=== PATIENT | female | born 1945 | race Caucasian/White ===

== ENCOUNTER 2016-11-25 14:55 | Emergency (ER) | payer MEDICARE, MEDICAID ==
[~2016-11-25] VITALS: Ht 162.6 cm; Wt 85.0 kg
[~2016-11-25 14:55] MED LIST: ACET325T14 PO; AMLO10TA4 PO; ASCO100072 PO; ASPI-496 PO; ATOR10TA9 PO; BACL-19 PO; BISA10SU2 RC; CARV6.2512 PO; CEFT1FRO2 IV; CHOL20003 PO; CLON0.1T PO; FEXO180T72 PO; FEXO1TAB29 PO; FURO-93 PO; GABA600T2 PO; GENT3.5O3 EACHEYE; GUAI12003 PO; HYDR-3240 PO; HYDR-3341 PO; INSU100V8 SQ; LEVO750T26 PO; LINA5TAB PO; LORA-445 PO; LOSA50TA2 PO; MAGN400O4 PO; METF500T4 PO; METO5TAB57 PO; METR500T PO; MONT10TA6 PO; NA P133E2 RC; NITR100C56 PO; PANT40TA3 PO; POTA10TA11 PO; POTA20PA PO; SANCTURA PO; SENN8.6T98 PO; SERT50TA PO; SIMV20TA PO; SIMV20TA3 PO; TROS20TA PO; Z-BEC PO; ZOLP-413 PO; [UNRECOGNIZED DRUG - OTHER] PO
[2016-11-25] MEDS ORDERED: LIDOCAINE 1%, 20ML INFIL ONE (16:30)
[2016-11-25] MEDS ORDERED: LIDOCAINE 1%, 20ML SQ ONE (16:30)
[2016-11-25] MEDS ORDERED: LIDOCAINE 1%, 20ML ONE (16:42)
[2016-11-25 19:45] VITALS: BP 160/68
== END 2016-11-25 20:30 ==
LOC: ED 15:21
DX: N75.1 Abscess of Bartholin's gland (principal); E11.9 Type 2 diabetes mellitus without complications; E78.00 Pure hypercholesterolemia, unspecified; I10 Essential (primary) hypertension
CPT/HCPCS: 56420

== ENCOUNTER 2017-03-02 10:37 | Inpatient (IN) | payer MEDICARE, MEDICAID ==
[~2017-03-02] VITALS: Ht 162.6 cm; Wt 83.7 kg
[~2017-03-02 10:37] MED LIST changes: +CHOL2000 PO; -CHOL20003 PO
[2017-03-02] MEDS ORDERED: AMOXICILLIN/CLAV 500-125MG TABLET PO ONE (11:12)
[2017-03-02] MEDS: NEO/POLY/HC EAR SUSP 10ML EACH EAR SCH ×3 (11:30→18:26)
[2017-03-02 12:08] LABS: PH, VENOUS 7.416 pH (7.320-7.420)
[2017-03-02 12:25] LABS: ASPARTATE AMINO TRANSFERASE 12 U/L (15-37); BLOOD UREA NITROGEN 24 mg/dL (7-18)
[2017-03-02] MEDS ORDERED: CETI10CA PO (12:58)
[2017-03-02 13:03] LABS: DIFF TOTAL CELLS COUNTED 100 CELL DIFF; VERIFY COUNTS? YES
[2017-03-02] MEDS ORDERED: CEFTRIAXONE PMX 1GM/50ML 50 ML ONE (14:52)
[2017-03-02] MEDS ORDERED: ACETAMINOPHEN 325 MG TABLET PO PRN (15:00)
[2017-03-02] MEDS ORDERED: CEFTRIAXONE 1,000 MG in SODIUM CHLORIDE 0.9% 50 ML IV SCH (15:00)
[2017-03-02] MEDS ORDERED: CEFTRIAXONE PMX 1GM/50ML 50 ML IV ONE (15:00)
[2017-03-02] MEDS ORDERED: BISACODYL 10 MG SUPP PR PRN (15:00)
[2017-03-02] MEDS ORDERED: ONDANSETRON 2MG/ML, 2ML IVPush PRN (15:00)
[2017-03-02] MEDS ORDERED: DOCUSATE 100 MG CAPSULE PO PRN (15:00)
[2017-03-02] MEDS ORDERED: HYDROcodone/APAP 5/325 TABLET ONE (15:16)
[2017-03-02] MEDS: HYDROcodone/APAP 5/325 TABLET PO PRN ×2 (15:23→23:05)
[2017-03-02] MEDS ORDERED: GLUCAGON 1 MG IM PRN (15:30)
[2017-03-02] MEDS ORDERED: DEXTROSE 50%, 50ML SYRINGE IVPush PRN (15:30)
[2017-03-02] MEDS ORDERED: DEXTROSE 4 GM TAB.CHEW PO PRN (15:30)
[2017-03-02 17:42] VITALS: BP 134/67
[2017-03-02] MEDS: INSULIN ASPART 100 UNITS/ML, PEN SQ-INSULIN SCH ×2 (18:26→21:00)
[2017-03-02 19:19] VITALS: BP 130/50
[2017-03-02] MEDS: SODIUM CHLORIDE FLUSH 3ML SYRINGE IVF SCH (21:00)
[2017-03-02] MEDS: SODIUM CHLORIDE FLUSH 10ML SYR IVF SCH (22:27)
[2017-03-02] MEDS: AZITHROMYCIN 500 MG in SODIUM CHLORIDE 0.9% 250 ML IV SCH (22:27)
[2017-03-02] MEDS: PANTOPROZOLE 40MG TABLET PO SCH (22:27)
[2017-03-02] MEDS: ENOXAPARIN 40 MG/0.4 ML SQ SCH (22:27)
[2017-03-02] MEDS: GUAIFENESIN ER 600 MG TABLET PO SCH (22:28)
[2017-03-02] MEDS: BACLOFEN 10 MG TABLET PO SCH (22:28)
[2017-03-02] MEDS: ATORVASTATIN 10 MG TABLET PO SCH (22:28)
[2017-03-02] MEDS: LOSARTAN 50MG TABLET PO SCH (22:28)
[2017-03-02] MEDS: SERTRALINE 50MG TABLET PO SCH (22:28)
[2017-03-02] MEDS: GABAPENTIN 300 MG CAPSULE PO SCH (22:28)
[2017-03-02] MEDS: LORazepam 0.5MG TABLET PO SCH (22:29)
[2017-03-02 22:34] VITALS: BP 130/51
[2017-03-02] MEDS: INSULIN DETEMIR 100 UNITS/ML, PEN SQ-INSULIN SCH (23:04)
[2017-03-03] MEDS: NEO/POLY/HC EAR SUSP 10ML EACH EAR SCH ×5 (00:10→20:15)
[2017-03-03 03:09] VITALS: BP 125/69
[2017-03-03] MEDS: CEFTRIAXONE PMX 1GM/50ML 50 ML IV SCH ×2 (03:14→15:23)
[2017-03-03 05:24] LABS: BLOOD UREA NITROGEN 20 mg/dL (7-18)
[2017-03-03 05:54] VITALS: BP 132/58
[2017-03-03] MEDS: INSULIN ASPART 100 UNITS/ML, PEN SQ-INSULIN SCH ×4 (07:00→20:14)
[2017-03-03 08:01] VITALS: BP 123/51
[2017-03-03] MEDS: MONTELUKAST 10 MG TABLET PO SCH (08:20)
[2017-03-03] MEDS: PANTOPROZOLE 40MG TABLET PO SCH ×2 (08:20→20:15)
[2017-03-03] MEDS: POTASSIUM CHLORIDE 20 MEQ TAB.ER.PRT PO SCH (08:20)
[2017-03-03] MEDS: AMLODIPINE 5 MG TABLET PO SCH (08:20)
[2017-03-03] MEDS: SENNOSIDES 8.6 MG TABLET PO SCH (08:20)
[2017-03-03] MEDS: BACLOFEN 10 MG TABLET PO SCH ×2 (08:21→20:16)
[2017-03-03] MEDS: CHOLECALCIFEROL 1,000 UNIT TABLET PO SCH (08:21)
[2017-03-03] MEDS: GABAPENTIN 300 MG CAPSULE PO SCH ×2 (08:21→20:15)
[2017-03-03] MEDS: CETIRIZINE 10 MG TABLET PO SCH (08:21)
[2017-03-03] MEDS: LOSARTAN 50MG TABLET PO SCH ×2 (08:21→21:00)
[2017-03-03] MEDS: ASPIRIN 325 MG TABLET EC PO SCH (08:21)
[2017-03-03] MEDS: SODIUM CHLORIDE FLUSH 3ML SYRINGE IVF SCH ×2 (09:00→20:39)
[2017-03-03] MEDS: SODIUM CHLORIDE FLUSH 10ML SYR IVF SCH ×2 (09:00→20:15)
[2017-03-03] MEDS: GUAIFENESIN ER 600 MG TABLET PO SCH ×2 (11:49→20:16)
[2017-03-03 14:20] VITALS: BP 126/58
[2017-03-03] MEDS: FLUCONAZOLE 200 MG TABLET PO SCH (15:23)
[2017-03-03] MEDS: HYDROcodone/APAP 5/325 TABLET PO PRN ×2 (15:25→22:06)
[2017-03-03 20:05] VITALS: BP 103/40
[2017-03-03] MEDS: ENOXAPARIN 40 MG/0.4 ML SQ SCH (20:14)
[2017-03-03] MEDS: ATORVASTATIN 10 MG TABLET PO SCH (20:16)
[2017-03-03] MEDS: SERTRALINE 50MG TABLET PO SCH (20:16)
[2017-03-03] MEDS: LORazepam 0.5MG TABLET PO SCH (22:06)
[2017-03-03] MEDS: AZITHROMYCIN 500 MG in SODIUM CHLORIDE 0.9% 250 ML IV SCH (22:06)
[2017-03-03] MEDS: INSULIN DETEMIR 100 UNITS/ML, PEN SQ-INSULIN SCH (22:07)
[2017-03-04 02:28] VITALS: BP 109/50
[2017-03-04] MEDS: CEFTRIAXONE PMX 1GM/50ML 50 ML IV SCH ×2 (02:48→14:40)
[2017-03-04 05:02] LABS: BLOOD UREA NITROGEN 27 mg/dL (7-18)
[2017-03-04] MEDS: NEO/POLY/HC EAR SUSP 10ML EACH EAR SCH ×4 (06:19→22:28)
[2017-03-04 07:11] VITALS: BP 116/51
[2017-03-04] MEDS: SENNOSIDES 8.6 MG TABLET PO SCH ×2 (09:00→09:21)
[2017-03-04] MEDS: GABAPENTIN 300 MG CAPSULE PO SCH ×2 (09:07→22:29)
[2017-03-04] MEDS: POTASSIUM CHLORIDE 20 MEQ TAB.ER.PRT PO SCH (09:07)
[2017-03-04] MEDS: ASPIRIN 325 MG TABLET EC PO SCH (09:07)
[2017-03-04] MEDS: GUAIFENESIN ER 600 MG TABLET PO SCH ×2 (09:07→22:30)
[2017-03-04] MEDS: CHOLECALCIFEROL 1,000 UNIT TABLET PO SCH (09:07)
[2017-03-04] MEDS: MONTELUKAST 10 MG TABLET PO SCH (09:07)
[2017-03-04] MEDS: AMLODIPINE 5 MG TABLET PO SCH (09:08)
[2017-03-04] MEDS: BACLOFEN 10 MG TABLET PO SCH ×2 (09:08→22:30)
[2017-03-04] MEDS: PANTOPROZOLE 40MG TABLET PO SCH ×2 (09:08→22:47)
[2017-03-04] MEDS: SODIUM CHLORIDE FLUSH 10ML SYR IVF SCH ×2 (09:09→21:00)
[2017-03-04] MEDS: INSULIN ASPART 100 UNITS/ML, PEN SQ-INSULIN SCH ×4 (09:09→22:42)
[2017-03-04] MEDS: CETIRIZINE 10 MG TABLET PO SCH (09:09)
[2017-03-04] MEDS: LOSARTAN 50MG TABLET PO SCH ×2 (09:09→22:30)
[2017-03-04] MEDS: SODIUM CHLORIDE FLUSH 3ML SYRINGE IVF SCH ×2 (09:09→22:47)
[2017-03-04 11:35] VITALS: BP 119/54
[2017-03-04] MEDS ORDERED: FUROSEMIDE 40 MG/4 ML IV ONE (12:30)
[2017-03-04 13:12] VITALS: BP 109/49
[2017-03-04] MEDS: FLUCONAZOLE 200 MG TABLET PO SCH (14:40)
[2017-03-04 17:37] VITALS: BP 138/68
[2017-03-04] MEDS: HYDROcodone/APAP 5/325 TABLET PO PRN (17:37)
[2017-03-04 19:59] VITALS: BP 120/49
[2017-03-04] MEDS: ENOXAPARIN 40 MG/0.4 ML SQ SCH (22:28)
[2017-03-04] MEDS: SERTRALINE 50MG TABLET PO SCH (22:30)
[2017-03-04] MEDS: ATORVASTATIN 10 MG TABLET PO SCH (22:30)
[2017-03-04] MEDS: INSULIN DETEMIR 100 UNITS/ML, PEN SQ-INSULIN SCH (22:41)
[2017-03-04] MEDS: LORazepam 0.5MG TABLET PO SCH (22:47)
[2017-03-04] MEDS: AZITHROMYCIN 500 MG in SODIUM CHLORIDE 0.9% 250 ML IV SCH (23:36)
[2017-03-05 00:09] VITALS: BP 123/51
[2017-03-05] MEDS: CEFTRIAXONE PMX 1GM/50ML 50 ML IV SCH ×2 (02:54→14:49)
[2017-03-05 03:36] LABS: BLOOD UREA NITROGEN 21 mg/dL (7-18)
[2017-03-05] MEDS: NEO/POLY/HC EAR SUSP 10ML EACH EAR SCH ×4 (06:00→21:00)
[2017-03-05] MEDS: INSULIN ASPART 100 UNITS/ML, PEN SQ-INSULIN SCH ×4 (07:00→23:12)
[2017-03-05 07:22] VITALS: BP 131/61
[2017-03-05] MEDS ORDERED: FUROSEMIDE 40 MG TABLET PO SCH (08:30)
[2017-03-05] MEDS ORDERED: POTASSIUM CHLORIDE 20 MEQ TAB.ER.PRT PO ONE (08:30)
[2017-03-05] MEDS ORDERED: SENNOSIDES 8.6 MG TABLET PO SCH (09:00)
[2017-03-05] MEDS: AMLODIPINE 5 MG TABLET PO SCH (09:00)
[2017-03-05] MEDS: SODIUM CHLORIDE FLUSH 10ML SYR IVF SCH ×2 (09:00→21:00)
[2017-03-05] MEDS ORDERED: ONDANSETRON 2MG/ML, 2ML IVPush PRN (11:30)
[2017-03-05] MEDS ORDERED: PROMETHAZINE 25 MG SUPP PR PRN (11:30)
[2017-03-05] MEDS: SODIUM CHLORIDE FLUSH 3ML SYRINGE IVF SCH ×2 (12:04→23:13)
[2017-03-05] MEDS: BACLOFEN 10 MG TABLET PO SCH ×2 (12:05→22:58)
[2017-03-05] MEDS: LOSARTAN 50MG TABLET PO SCH ×2 (12:05→22:58)
[2017-03-05] MEDS: ASPIRIN 325 MG TABLET EC PO SCH (12:05)
[2017-03-05] MEDS: POTASSIUM CHLORIDE 20 MEQ TAB.ER.PRT PO SCH (12:05)
[2017-03-05] MEDS: GUAIFENESIN ER 600 MG TABLET PO SCH ×2 (12:05→22:58)
[2017-03-05] MEDS: GABAPENTIN 300 MG CAPSULE PO SCH ×2 (12:05→22:58)
[2017-03-05] MEDS: CHOLECALCIFEROL 1,000 UNIT TABLET PO SCH (12:06)
[2017-03-05] MEDS: SENNOSIDES 8.6 MG TABLET PO SCH (12:06)
[2017-03-05] MEDS: MONTELUKAST 10 MG TABLET PO SCH (12:06)
[2017-03-05] MEDS: CETIRIZINE 10 MG TABLET PO SCH (12:06)
[2017-03-05] MEDS: PANTOPROZOLE 40MG TABLET PO SCH ×2 (12:06→22:58)
[2017-03-05] MEDS: FLUCONAZOLE 200 MG TABLET PO SCH (14:48)
[2017-03-05 15:00] VITALS: BP 136/79
[2017-03-05 19:20] VITALS: BP 127/54
[2017-03-05] MEDS: ENOXAPARIN 40 MG/0.4 ML SQ SCH (22:57)
[2017-03-05] MEDS: SERTRALINE 50MG TABLET PO SCH (22:57)
[2017-03-05] MEDS: ATORVASTATIN 10 MG TABLET PO SCH (22:57)
[2017-03-05] MEDS: LORazepam 0.5MG TABLET PO SCH (23:13)
[2017-03-05] MEDS: HYDROcodone/APAP 5/325 TABLET PO PRN (23:13)
[2017-03-05] MEDS: INSULIN DETEMIR 100 UNITS/ML, PEN SQ-INSULIN SCH (23:13)
[2017-03-05] MEDS: AZITHROMYCIN 500 MG in SODIUM CHLORIDE 0.9% 250 ML IV SCH (23:25)
[2017-03-06] MEDS: CEFTRIAXONE PMX 1GM/50ML 50 ML IV SCH ×2 (03:32→16:00)
[2017-03-06 03:33] VITALS: BP 112/62
[2017-03-06 05:15] LABS: BLOOD UREA NITROGEN 20 mg/dL (7-18)
[2017-03-06] MEDS: NEO/POLY/HC EAR SUSP 10ML EACH EAR SCH ×4 (06:00→20:53)
[2017-03-06] MEDS: INSULIN ASPART 100 UNITS/ML, PEN SQ-INSULIN SCH ×4 (06:29→21:00)
[2017-03-06 06:58] VITALS: BP 131/54
[2017-03-06] MEDS: GABAPENTIN 300 MG CAPSULE PO SCH ×2 (08:24→21:07)
[2017-03-06] MEDS: MONTELUKAST 10 MG TABLET PO SCH (08:24)
[2017-03-06] MEDS: PANTOPROZOLE 40MG TABLET PO SCH ×2 (08:24→21:07)
[2017-03-06] MEDS: AMLODIPINE 5 MG TABLET PO SCH (08:24)
[2017-03-06] MEDS: FLUCONAZOLE 200 MG TABLET PO SCH ×2 (08:24→16:00)
[2017-03-06] MEDS: SODIUM CHLORIDE FLUSH 10ML SYR IVF SCH ×2 (08:25→20:54)
[2017-03-06] MEDS: ASPIRIN 325 MG TABLET EC PO SCH (08:25)
[2017-03-06] MEDS: GUAIFENESIN ER 600 MG TABLET PO SCH ×2 (08:25→21:05)
[2017-03-06] MEDS: SENNOSIDES 8.6 MG TABLET PO SCH (08:25)
[2017-03-06] MEDS: HYDROcodone/APAP 5/325 TABLET PO PRN ×2 (08:25→16:00)
[2017-03-06] MEDS: POTASSIUM CHLORIDE 20 MEQ TAB.ER.PRT PO SCH (08:25)
[2017-03-06] MEDS: SODIUM CHLORIDE FLUSH 3ML SYRINGE IVF SCH ×2 (08:25→20:54)
[2017-03-06] MEDS: CETIRIZINE 10 MG TABLET PO SCH (08:25)
[2017-03-06] MEDS: BACLOFEN 10 MG TABLET PO SCH ×2 (08:25→21:05)
[2017-03-06] MEDS: LOSARTAN 50MG TABLET PO SCH ×2 (08:25→22:33)
[2017-03-06] MEDS: CHOLECALCIFEROL 1,000 UNIT TABLET PO SCH (08:30)
[2017-03-06] MEDS ORDERED: FUROSEMIDE 40 MG/4 ML IV ONE (11:30)
[2017-03-06 13:18] VITALS: BP 139/62
[2017-03-06 18:46] VITALS: BP 123/63
[2017-03-06] MEDS: ENOXAPARIN 40 MG/0.4 ML SQ SCH (20:52)
[2017-03-06] MEDS: LORazepam 0.5MG TABLET PO SCH (21:03)
[2017-03-06] MEDS: ATORVASTATIN 10 MG TABLET PO SCH (21:06)
[2017-03-06] MEDS: SERTRALINE 50MG TABLET PO SCH (21:06)
[2017-03-06 21:28] VITALS: BP 110/50
[2017-03-06 22:21] VITALS: BP 124/57
[2017-03-06] MEDS: INSULIN DETEMIR 100 UNITS/ML, PEN SQ-INSULIN SCH (22:33)
[2017-03-06] MEDS: AZITHROMYCIN 500 MG in SODIUM CHLORIDE 0.9% 250 ML IV SCH (22:37)
[2017-03-07 02:42] VITALS: BP 135/65
[2017-03-07] MEDS: CEFTRIAXONE PMX 1GM/50ML 50 ML IV SCH ×2 (03:03→15:02)
[2017-03-07] MEDS: HYDROcodone/APAP 5/325 TABLET PO PRN ×2 (03:03→16:45)
[2017-03-07] MEDS: NEO/POLY/HC EAR SUSP 10ML EACH EAR SCH ×4 (06:00→23:21)
[2017-03-07] MEDS: INSULIN ASPART 100 UNITS/ML, PEN SQ-INSULIN SCH ×4 (07:00→21:00)
[2017-03-07 07:33] VITALS: BP 132/59
[2017-03-07] MEDS: SODIUM CHLORIDE FLUSH 3ML SYRINGE IVF SCH ×2 (09:00→21:00)
[2017-03-07] MEDS: PANTOPROZOLE 40MG TABLET PO SCH ×2 (10:03→22:22)
[2017-03-07] MEDS: BACLOFEN 10 MG TABLET PO SCH ×2 (10:03→22:22)
[2017-03-07] MEDS: MONTELUKAST 10 MG TABLET PO SCH (10:03)
[2017-03-07] MEDS: CHOLECALCIFEROL 1,000 UNIT TABLET PO SCH (10:03)
[2017-03-07] MEDS: SODIUM CHLORIDE FLUSH 10ML SYR IVF SCH ×2 (10:03→22:21)
[2017-03-07] MEDS: SENNOSIDES 8.6 MG TABLET PO SCH (10:03)
[2017-03-07] MEDS: CETIRIZINE 10 MG TABLET PO SCH (10:03)
[2017-03-07] MEDS: ASPIRIN 325 MG TABLET EC PO SCH (10:04)
[2017-03-07] MEDS: AMLODIPINE 5 MG TABLET PO SCH (10:04)
[2017-03-07] MEDS: POTASSIUM CHLORIDE 20 MEQ TAB.ER.PRT PO SCH (10:04)
[2017-03-07] MEDS: LOSARTAN 50MG TABLET PO SCH ×2 (10:04→22:23)
[2017-03-07] MEDS: GUAIFENESIN ER 600 MG TABLET PO SCH ×2 (10:04→22:22)
[2017-03-07] MEDS: FLUCONAZOLE 200 MG TABLET PO SCH ×3 (10:04→15:02)
[2017-03-07] MEDS: GABAPENTIN 300 MG CAPSULE PO SCH ×2 (10:04→22:22)
[2017-03-07 13:33] VITALS: BP 110/63
[2017-03-07 19:43] VITALS: BP 125/58
[2017-03-07] MEDS: ENOXAPARIN 40 MG/0.4 ML SQ SCH (22:21)
[2017-03-07] MEDS: AZITHROMYCIN 500 MG in SODIUM CHLORIDE 0.9% 250 ML IV SCH (22:21)
[2017-03-07] MEDS: ATORVASTATIN 10 MG TABLET PO SCH (22:22)
[2017-03-07] MEDS: SERTRALINE 50MG TABLET PO SCH (22:22)
[2017-03-07] MEDS: INSULIN DETEMIR 100 UNITS/ML, PEN SQ-INSULIN SCH (22:27)
[2017-03-07] MEDS: LORazepam 0.5MG TABLET PO SCH (23:21)
[2017-03-08] MEDS ORDERED: CATHFLO-ALTEPLASE 2 MG/2 ML CATHFLUSH ONE (01:30)
[2017-03-08 02:50] VITALS: BP 128/61
[2017-03-08] MEDS: CEFTRIAXONE PMX 1GM/50ML 50 ML IV SCH ×2 (03:04→15:00)
[2017-03-08 03:58] LABS: BLOOD UREA NITROGEN 21 mg/dL (7-18)
[2017-03-08] MEDS: NEO/POLY/HC EAR SUSP 10ML EACH EAR SCH ×2 (06:29→11:00)
[2017-03-08] MEDS: SODIUM CHLORIDE FLUSH 10ML SYR IVF SCH (07:35)
[2017-03-08] MEDS: INSULIN ASPART 100 UNITS/ML, PEN SQ-INSULIN SCH ×2 (07:35→11:00)
[2017-03-08] MEDS: SODIUM CHLORIDE FLUSH 3ML SYRINGE IVF SCH (07:35)
[2017-03-08 08:30] VITALS: BP 151/67
[2017-03-08] MEDS: BACLOFEN 10 MG TABLET PO SCH ×2 (09:00→09:41)
[2017-03-08] MEDS: AMLODIPINE 5 MG TABLET PO SCH ×2 (09:00→09:40)
[2017-03-08] MEDS: GABAPENTIN 300 MG CAPSULE PO SCH ×2 (09:00→09:41)
[2017-03-08] MEDS: POTASSIUM CHLORIDE 20 MEQ TAB.ER.PRT PO SCH ×2 (09:00→09:40)
[2017-03-08] MEDS: CETIRIZINE 10 MG TABLET PO SCH ×2 (09:00→09:40)
[2017-03-08] MEDS: SENNOSIDES 8.6 MG TABLET PO SCH ×2 (09:00→09:41)
[2017-03-08] MEDS: GUAIFENESIN ER 600 MG TABLET PO SCH ×2 (09:00→09:41)
[2017-03-08] MEDS: MONTELUKAST 10 MG TABLET PO SCH ×2 (09:00→09:40)
[2017-03-08] MEDS: PANTOPROZOLE 40MG TABLET PO SCH (09:40)
[2017-03-08] MEDS: ASPIRIN 325 MG TABLET EC PO SCH (09:41)
[2017-03-08] MEDS: CHOLECALCIFEROL 1,000 UNIT TABLET PO SCH (09:41)
[2017-03-08] MEDS: FLUCONAZOLE 200 MG TABLET PO SCH ×2 (09:41→14:00)
[2017-03-08] MEDS: LOSARTAN 50MG TABLET PO SCH (09:41)
[2017-03-08] MEDS ORDERED: AZIT500T77 PO (11:35)
[2017-03-08] MEDS ORDERED: FLUC200T PO (11:36)
== END 2017-03-08 15:58 | DRG 871 ==
LOC: ED 10:57 → EDIP 13:21 → 4NOR 17:02
PROVIDERS: ADMIT Internal Medicine
PROC: 02HV33Z Insertion of Infusion Device into Superior Vena Cava, Percutaneous Approach (ICD-10-PCS; principal; 2017-03-02)
PROC: B5181ZA Fluoroscopy of Superior Vena Cava using Low Osmolar Contrast, Guidance (ICD-10-PCS; 2017-03-02)
DX: A41.9 Sepsis, unspecified organism (principal); J18.1 Lobar pneumonia, unspecified organism; E44.1 Mild protein-calorie malnutrition; E87.1 Hypo-osmolality and hyponatremia; I13.0 Hypertensive heart and chronic kidney disease with heart failure and stage 1 through stage 4 chronic kidney disease, or unspecified chronic kidney disease; I50.32 Chronic diastolic (congestive) heart failure; L03.115 Cellulitis of right lower limb; N39.0 Urinary tract infection, site not specified; E11.22 Type 2 diabetes mellitus with diabetic chronic kidney disease; N18.3 Chronic kidney disease, stage 3 (moderate); E78.00 Pure hypercholesterolemia, unspecified; E78.5 Hyperlipidemia, unspecified; F03.90 Unspecified dementia, unspecified severity, without behavioral disturbance, psychotic disturbance, mood disturbance, and anxiety; F32.9 Major depressive disorder, single episode, unspecified; G62.9 Polyneuropathy, unspecified; I48.2 Chronic atrial fibrillation; H66.013 Acute suppurative otitis media with spontaneous rupture of ear drum, bilateral; K21.9 Gastro-esophageal reflux disease without esophagitis; S91.302A Unspecified open wound, left foot, initial encounter; S91.339A Puncture wound without foreign body, unspecified foot, initial encounter; Z86.010 Personal history of colon polyps; Z86.73 Personal history of transient ischemic attack (TIA), and cerebral infarction without residual deficits; Z68.31 Body mass index [BMI] 31.0-31.9, adult; Z88.8 Allergy status to other drugs, medicaments and biological substances; Z91.030 Bee allergy status; Z91.041 Radiographic dye allergy status; Z90.49 Acquired absence of other specified parts of digestive tract; Z89.421 Acquired absence of other right toe(s); T70.0XXA Otitic barotrauma, initial encounter
CPT/HCPCS: 36415; 36569; 71010; 76937; 77001; 80048; 80053; 81001; 82010; 82803; 82962; 83735; 84100; 85025; 87040; 87086; 87106; 99285; J0456; J0696; J1650; J1815; J1940; C1751; J7050

== ENCOUNTER 2020-05-27 16:40 | Emergency (ER) | payer MEDICARE, MEDICAID ==
[~2020-05-27] VITALS: Ht 162.6 cm; Wt 86.3 kg
[~2020-05-27 16:40] MED LIST changes: +AZIT500T10 PO; -BISA10SU2 RC; +BISA10SU4 RC; +CETI10CA PO; -CLON0.1T PO; +CLON0.1T22 PO; +FLUC200T PO; -GABA600T2 PO; +GABA600T7 PO; -MAGN400O4 PO; +MAGN400O7 PO; +METF500T17 PO; -METF500T4 PO; -POTA20PA PO; +POTA20PA31 PO; +SIMV20TA19 PO; -SIMV20TA3 PO
--- NOTE | 2020-05-27 17:10 | NUR ---
PT BIB [facility], PT WITH C/O L FACE AND ARM NUMBNESS. STARTED THREE DAYS AGO. DIFFICULT TO OBTAIN STORY FROM PT SHE FREQUENTLY STOPS TALKING THEN STARTS OVER, ADDING DETAILS AND CHANGING DETAILS. PT IS [id number], DOES REMAIN HAVING SOME FAINT NUMBNESS IN L FACE AND HAND, OTHERWISE NEURO INTACT. PT TO CARD MONITOR, BP, CONT PULSE OX Addendum: 05/27/20 at 1855 by IZABELA CORRECTION PT IS [id number]
[2020-05-27 17:24] LABS: BASOPHILS # (AUTO) 0.07 x10^3/uL (0-0.1); BASOPHILS % (AUTO) 1 % (0-1); EOSINOPHILS # (AUTO) 0.65 x10^3/uL (0-0.4); EOSINOPHILS % (AUTO) 6 % (1-7); LYMPHOCYTES % (AUTO) 21 % (22-44); MD NO; MEAN CORPUSCULAR HEMOGLOBIN 29.6 pg (27.0-34.8); MEAN CORPUSCULAR HGB CONC 33.4 g/dL (32.4-35.8); MEAN CORPUSCULAR VOLUME 88.8 fL (80-100); MEAN PLATELET VOLUME 8.6 fL (7.4-10.4); MONOCYTES # (AUTO) 0.96 x10^3/uL (0.2-0.8); MONOCYTES % (AUTO) 8 % (2-9); NEUTROPHILS # (AUTO) 7.34 x10^3/uL (1.8-6.8); NEUTROPHILS % (AUTO) 64 % (42-75); PLATELET COUNT 223 x10^3/uL (130-400); RED BLOOD COUNT 4.49 x10^6/uL (3.82-5.3); RED CELL DISTRIBUTION WIDTH 13.9 % (9.6-15.2)
[2020-05-27 17:35] LABS: ALBUMIN 3.2 g/dL (3.4-5.0); ANION GAP 7 mmol/L (5-15); CALCIUM 8.9 mg/dL (8.5-10.1); CHLORIDE 111 mmol/L (98-107)
[2020-05-27 17:38] LABS: ALANINE AMINOTRANSFERASE 26 U/L (12-78); ALKALINE PHOSPHATASE 81 U/L (45-117); BILIRUBIN,TOTAL 0.2 mg/dL (0.2-1.0); CREATININE 1.34 mg/dL (0.55-1.02); TOTAL PROTEIN 7.2 g/dL (6.4-8.2)
--- NOTE | 2020-05-27 17:40 | NUR ---
LAB IN DRAW PT, PT EXPRESSING FEAR OF NEEDLES, CONVICED PT THAT LABS ARE NEEDED TO HELP GUIDE PTS CARE. PT NOW AGREEABLE, PT DECLINES IV AT THIS TIME, ERMD UPDATED. WILL HOLD OFF AT THIS TIME.
--- NOTE | 2020-05-27 17:55 | NUR ---
DELAY IN CARE: PT REQUESTING TO USE BR PRIOR TO CT. PT ASSISTED WITH BEDSIDE COMMODE WITH CGA. VSS, PT WITH NO OTHER NEEDS AT THIS TIME
[2020-05-27] MEDS ORDERED: SODIUM CHLORIDE FLUSH 10ML SYR IVF ONE (18:00)
[2020-05-27 19:30] VITALS: BP 123/88
== END 2020-05-27 19:39 | disposition home or self-care (01) ==
LOC: ED 18:55
DX: R20.2 Paresthesia of skin (principal); R29.810 Facial weakness; R06.89 Other abnormalities of breathing; I12.9 Hypertensive chronic kidney disease with stage 1 through stage 4 chronic kidney disease, or unspecified chronic kidney disease; I50.9 Heart failure, unspecified; N18.3 Chronic kidney disease, stage 3 (moderate); I48.91 Unspecified atrial fibrillation; I48.92 Unspecified atrial flutter; K21.9 Gastro-esophageal reflux disease without esophagitis; Z90.49 Acquired absence of other specified parts of digestive tract; Z86.73 Personal history of transient ischemic attack (TIA), and cerebral infarction without residual deficits
CPT/HCPCS: 36415; 70450; 71045; 80053; 83735; 85025; 93005; 99285

== ENCOUNTER → 2020-08-19 | Outpatient (CLI) | payer MEDICARE, MEDICAID | END | disposition home or self-care (01) | LOC: CVU 09:58 | PROVIDERS: ATTEND Internal Medicine Cardiovascular Disease | DX: I08.3 Combined rheumatic disorders of mitral, aortic and tricuspid valves (principal); I11.9 Hypertensive heart disease without heart failure; I65.23 Occlusion and stenosis of bilateral carotid arteries | CPT/HCPCS: 93306; 93880 ==